=== PATIENT | female | born 1950 | race African-American/Black ===

== ENCOUNTER 2018-06-01 15:00 | Emergency (ER) | payer MEDICAID, MEDICARE, OTHER ==
[~2018-06-01] VITALS: Ht 160 cm; Wt 97.0 kg
[2018-06-01] MEDS ORDERED: OXYC10TA89 PO (15:22)
[2018-06-01] MEDS ORDERED: INSU100V SQ (15:22)
[2018-06-01] MEDS ORDERED: LOSA50TA64 PO (15:22)
[2018-06-01] MEDS ORDERED: FURO40 PO (15:23)
[2018-06-01] MEDS ORDERED: INSLAN SQ (15:23)
[2018-06-01] MEDS ORDERED: PERCT10 PO (15:24)
[2018-06-01 15:30] LABS: GLUCOSE,POINT OF CARE 349 MG/DL (70-110)
[2018-06-01] MEDS ORDERED: KETOROLAC TROMETHAMINE 30 MG/ML VIAL IM ONE (15:45)
[2018-06-01 17:31] VITALS: BP 140/77
== END 2018-06-01 19:10 | disposition home or self-care (01) ==
LOC: EMS 15:01
DX: S13.4XXA Sprain of ligaments of cervical spine, initial encounter (principal); R51 Headache; E11.9 Type 2 diabetes mellitus without complications; I10 Essential (primary) hypertension; M19.90 Unspecified osteoarthritis, unspecified site; Z90.710 Acquired absence of both cervix and uterus; Z79.4 Long term (current) use of insulin; Z79.899 Other long term (current) drug therapy; V49.9XXA Car occupant (driver) (passenger) injured in unspecified traffic accident, initial encounter; Y93.89 Activity, other specified; Y92.488 Other paved roadways as the place of occurrence of the external cause; Y99.8 Other external cause status
CPT/HCPCS: 70450; 72125; 82962; 96372; 99284; J1885